=== PATIENT | male | born 1955 ===

== ENCOUNTER 2018-02-24 09:40 | Inpatient (IN) | payer OTHER ==
[~2018-02-24] VITALS: Ht 165.1 cm; Wt 89.4 kg
[2018-02-24] MEDS ORDERED: ATORVASTATIN CA40 MG (10:07)
[2018-02-24] MEDS ORDERED: TRADJENTA5 MG (10:08)
[2018-02-24] MEDS ORDERED: ASA81 MG (10:09)
[2018-02-24] MEDS ORDERED: [UNRECOGNIZED DRUG - OTHER] (10:09)
[2018-02-24] MEDS ORDERED: [UNRECOGNIZED DRUG - OTHER] (10:10)
[2018-02-24] MEDS ORDERED: LANTUS SOL100 UNIT/1 (10:10)
[2018-02-25] MEDS ORDERED: NORVASC2.5 M1 PO (14:22)
== END 2018-03-07 18:06 | disposition home or self-care (01) | DRG 683 ==
LOC: ER 09:40 → EDBD 13:48 → MEDJ 13:48
PROC: 06HM33Z Insertion of Infusion Device into Right Femoral Vein, Percutaneous Approach (ICD-10-PCS; principal; 2018-02-24)
PROC: BW21ZZZ Computerized Tomography (CT Scan) of Abdomen and Pelvis (ICD-10-PCS; 2018-02-24)
PROC: 5A1D70Z Performance of Urinary Filtration, Intermittent, Less than 6 Hours Per Day (ICD-10-PCS; 2018-02-25)
PROC: 05HM33Z Insertion of Infusion Device into Right Internal Jugular Vein, Percutaneous Approach (ICD-10-PCS; 2018-02-26)
PROC: B543ZZA Ultrasonography of Right Jugular Veins, Guidance (ICD-10-PCS; 2018-02-26)
PROC: B54DZZZ Ultrasonography of Bilateral Lower Extremity Veins (ICD-10-PCS; 2018-02-26)
PROC: 30233N1 Transfusion of Nonautologous Red Blood Cells into Peripheral Vein, Percutaneous Approach (ICD-10-PCS; 2018-02-28)
DX: N17.8 Other acute kidney failure (principal); T82.49XA Other complication of vascular dialysis catheter, initial encounter; I82.421 Acute embolism and thrombosis of right iliac vein; I82.411 Acute embolism and thrombosis of right femoral vein; I82.431 Acute embolism and thrombosis of right popliteal vein; I82.441 Acute embolism and thrombosis of right tibial vein; I82.811 Embolism and thrombosis of superficial veins of right lower extremity; D62 Acute posthemorrhagic anemia; I10 Essential (primary) hypertension; E87.5 Hyperkalemia; E11.65 Type 2 diabetes mellitus with hyperglycemia; N13.2 Hydronephrosis with renal and ureteral calculous obstruction; R31.0 Gross hematuria